=== PATIENT | male | born 1965 | race Caucasian/White ===

== ENCOUNTER 2021-02-05 20:39 | Outpatient (REF) | payer BC, SELFPAY ==
[2021-02-07 12:03] LABS: COVID-19 RT-PCR UVMMC Result Negative (Negative)
== END 2021-02-05 20:40 | disposition home or self-care (01) ==
LOC: LBN 20:39
PROVIDERS: PCP Emergency Medicine; Visit Provider Emergency Medicine
DX: Z20.822 Contact with and (suspected) exposure to COVID-19 (principal); J45.909 Unspecified asthma, uncomplicated
CPT/HCPCS: U0003

== ENCOUNTER 2021-02-06 04:22 | Outpatient (CLI) | payer BC, SELFPAY ==
--- NOTE | 2021-02-06 08:15 | DI.RAD_ITS ---
Exam(s) XR CHEST 2V PA LATERAL EXAM: XR CHEST 2V PA LATERAL CLINICAL HISTORY: sob,r06.02. TECHNIQUE: 2D digital imaging was performed. COMPARISON: Chest x-ray 05/19/2016 FINDINGS: Chest x-ray performed 02/06/2021 is submitted to sc for interpretation on today's date, 02/11/2021. Compared to 2017 Heart size is normal. The mediastinum is not widened. Hyperinflation. There is infiltrate in the left lower lobe. Also atelectasis-infiltrate in the ling ular segment of the left lung. No obvious pleural effusion. IMPRESSION: Left lung base infiltrate as described above. No pleural effusions. DATA REPOSITORY: RADIATION DOSE DELIVERED:
== END 2021-02-06 04:42 ==
PROVIDERS: PCP Emergency Medicine; Visit Provider Emergency Medicine
DX: R06.02 Shortness of breath (principal); R91.8 Other nonspecific abnormal finding of lung field
CPT/HCPCS: 71046

== ENCOUNTER 2021-02-08 11:34 | Emergency (ER) | payer BC, SELFPAY ==
[2021-02-08 11:45] VITALS: BP 143/90; PULSE 80; TEMP 36.7; O2SAT 94
--- NOTE | 2021-02-08 11:45 | DI.RAD_ITS ---
Exam(s) XR PORTABLE CHEST AP EXAM: XR PORTABLE CHEST AP CLINICAL HISTORY: cough. TECHNIQUE: 2D digital imaging was performed. COMPARISON: CR CHEST 2 VIEWS PA,LAT from 05/19/2016 CR CHEST 2 VIEWS PA,LAT from 05/19/2016 CR XR CHEST 2V PA LATERAL from 02/06/2021 FINDINGS: Heart size is upper normal. The mediastinum is not widened. Right lung is clear. There is mild infiltrate in the left lower lobe posterior basal segment. Also within the inferior lingular segment. No pleural effusions. IMPRESSION: There is infiltrate in the left lung base. No pleural effusions. DATA REPOSITORY: RADIATION DOSE DELIVERED: All CT scans at this facility use at least one of these dose optimization techniques: automated exposure control; mA and/or kV adjustment per patient size (includes targeted e xams where dose is matched to clinical indication); or iterative reconstruction.
--- NOTE | 2021-02-08 11:48 | ED.GENADUL_ITS ---
Discharge Plan Disposition Patient Disposition: HOME Condition: Stable Discharge Details Clinical Impression: Pneumonia Primary Care Provider: Michael Jackson ED Provider: Mellissa Pardo Home Meds and New Rx's Prescriptions: New doxycycline hyclate 100 mg tablet 100 mg PO BID Qty: 14 RF: 0 albuterol sulfate 1.25 mg/3 mL solution for nebulization 1.25 mg inhalation QID PRN (Reason: shortness of breath or wheezing) Qty: 15 RF: 0 benzonatate [Tessalon Perles] 100 mg capsule 100 mg PO TID PRN (Reason: cough) Qty: 10 RF: 0 Continued triamcinolone acetonide 0.1 % ointment 1 applic topical DAILY Qty: 80 RF: 0 prednisone 20 mg tablet 40 mg PO DAILY Qty: 10 RF: 0 budesonide-formoterol [Symbicort] 80-4.5 mcg/actuation HFA aerosol inhaler 2 puff inhalation BID Qty: 10.2 RF: 6 lansoprazole [Prevacid] 30 MG capsule,delayed release(DR/EC) 30 mg PO DAILY RF: 0 ALPHAGAN P 15 ML drops 1 drp OD BID RF: 0 latanoprost [Xalatan] 2.5 ML drops 1 drp OU DAILY RF: 0 ibuprofen 200 MG capsule 800 mg PO q 6hr prn RF: 0 PROVENTIL HFA 18 GM HFA.AER.AD 2 puff Inhalation Q4H PRN Qty: 2 RF: 6 albuterol sulfate 90 mcg/actuation HFA aerosol inhaler 2 puff IH QID PRN (Reason: shortness of breath or wheezing) Qty: 18 RF: 6 Discharge Instructions Instructions: Pneumonia (ED) Additional Instructions: Your x-ray is concerning for pneumonia. Please take the antibiotics as prescribed. You are given a dose today, next dose will be due this evening. Please encourage hydration. You may use Tylenol and/or ibuprofen as needed for discomfort. You may use the albuterol as previously prescribed to help with shortness of breath, your albuterol nebulizer has been refilled. Please follow- up with primary care the end of the week for reevaluation. If you develop fever/chills, inability to stay hydrated, chest pain, increase shortness of breath or other new/worsening symptoms please seek care urgently once again. Referrals: Michael Jackson DO [Primary Care Provider] - Discharge Data Discharge Date/Time-TO BE ENTERED AT DEPARTURE: 02/08/21 14:56 Medical Decision Making Patient is a pleasant 55-year-old male presenting today with chief complaint of cough and shortness of breath. States this began 1 week ago and is progressively been increasing. He reports he has a history of asthma and states that this drainage started with wheezing. He has been using his albuterol inhaler, states he used twice this morning. He is requesting nebulizer. He states he was seen by his primary care on Tuesday, patient had negative Covid test at that time. States that he underwent a chest x-ray, has not yet received the results. He has been started on prednisone and has been taking this as prescribed. Is not currently on any antibiotics. He denies any fevers/chills. States he has been feeling fatigued. On exam, patient appears. He does appear fatigued. Vital signs are stable, including his oxygenation. He is afebrile. He does not appear systemically ill. His lung sounds are concerning for some slight wheezes at the bases. Following results normal HEENT exam. Primarily concerned for developing pneumonia. Reviewed patient's recent chest x-ray. Has not yet been interpreted by radiologist although my review had concerned for pneumonia in the left lower lobe. Will give DuoNeb and begin on antibiotics. As the symptoms have progressed, will obtain repeat chest x-ray. Patient feeling improved after nebulizer. Lungs clear. Will refill his nebulizer medication. CXR reviewed by radiologist: FINDINGS: Lungs: Mild airspace disease within the left lung base. Pleural spaces: Unremarkable. No pleural effusion. No pneumothorax. Heart/Mediastinum: Unremarkable. No cardiomegaly. Bones/joints: Unremarkable. IMPRESSION: Mild airspace disease within the left lung base. Lungs are otherwise well aerated. This was compared to previous by myself. I am still concerned for consolidation consistent with pneumonia in LLL. Will treat with abx, will give first dose of Doxy here. Refilled nebulizer. Encouraged hydration. He will continue with his steroids for his asthma exacerbation as previously prescribed by PCP. Return precautions discussed. All of his quesitons and concerns were addressed, he is in agreement with this plan. Advised f/u in one week for reevaluation. Patient requesting cough suppressant, will prescribe tessalon perles. HPI General Mode of arrival: ambulatory . Date/Time Provider Initiated Documentation: 02/08/21 11:48 . Limitations to Documentation: no limitations . Information obtained by: patient and RN notes reviewed . History of Present Illness 55 year old M presents to the emergency department with the chief complaint of cough, SOB, described as moderate, Quality is described as other (denies any pain), and is localized to the chest. Patient reports no radiation. Patient started experiencing this day(s) and it has been constant. Medication improves symptom(s), (albuterol) No exacerbating factors reported . Patient notes cough and shortness of breath; denies chest pain, fever/chills, loss of appetite, nausea/vomiting, rash and weakness. Patient did receive the following treatments prior to arrival, none Related Data Home Medications Medication Instructions Recorded Confirmed Alphagan P 1 drp OD BID drp 11/09/12 02/08/21 lansoprazole [Prevacid] 30 mg PO DAILY tab-cap 11/09/12 02/08/21 latanoprost [Xalatan] 1 drp OU DAILY drp 11/09/12 02/08/21 ibuprofen 800 mg PO q 6hr prn tab-cap 03/07/13 02/08/21 triamcinolone acetonide 0.1 % 1 applic TOPICAL DAILY #80 g 03/04/20 02/08/21 topical ointment albuterol sulfate 90 mcg/actuation 2 puff IH QID PRN #18 gm 07/29/20 02/08/21 aerosol inhaler budesonide-formoterol HFA 80 2 puff INHALATION BID #10.2 g 02/05/21 02/08/21 mcg-4.5 mcg/actuation aerosol inhaler prednisone 20 mg tablet 40 mg PO DAILY #10 tab 02/05/21 02/08/21 albuterol sulfate 1.25 mg INHALATION QID PRN #15 ml 02/08/21 benzonatate [Tessalon Perles] 100 mg PO TID PRN #10 cap 02/08/21 doxycycline hyclate 100 mg PO BID #14 tab 02/08/21 Previous Rx's Medication Instructions Recorded triamcinolone acetonide 0.1 % 1 applic TOPICAL DAILY #80 g 03/04/20 topical ointment albuterol sulfate 90 mcg/actuation 2 puff IH QID PRN #18 gm 07/29/20 aerosol inhaler budesonide-formoterol HFA 80 2 puff INHALATION BID #10.2 g 02/05/21 mcg-4.5 mcg/actuation aerosol inhaler prednisone 20 mg tablet 40 mg PO DAILY #10 tab 02/05/21 albuterol sulfate 1.25 mg INHALATION QID PRN #15 ml 02/08/21 benzonatate [Tessalon Perles] 100 mg PO TID PRN #10 cap 02/08/21 doxycycline hyclate 100 mg PO BID #14 tab 02/08/21 Allergies Allergy/AdvReac Type Severity Reaction Status Date / Time No Known Drug Allergies Allergy Verified 02/08/21 11:51 General Stated Complaint: RespSymp DANILO: 3 Review of Systems Constitutional Constitutional: Reports as per HPI, Reports fatigue, Denies fever(s) and Denies headache(s) ENT Ears, Nose, Mouth, and Throat: Reports as per HPI and Denies headache(s) Cardiovascular Cardiovascular: Reports as per HPI, Denies chest pain, Denies chest pain at rest, Reports dyspnea and Reports dyspnea on exertion Respiratory Respiratory: Reports as per HPI, Reports chest congestion, Denies hemoptysis, Reports excessive phlegm production, Denies pain on inspiration, Denies pain w ith cough, Reports dyspnea, Reports dyspnea on exertion and Reports wheezing Gastrointestinal Gastrointestinal: Reports as per HPI, Denies abdominal pain, Denies change in bowel habits, Denies nausea and Denies vomiting Integumentary/Breasts Skin/Breast: Reports as per HPI and Denies rash Neurologic Neurologic: Reports as per HPI and Denies headache(s) Endocrine Endocrine: Reports fatigue Allergic/Immunologic Allergic/Immunologic: Reports wheezing [facility] Medical History (Updated 02/08/21 @ 14:32 by EMILIANA Reed) SOB (shortness of breath) Surgical History Appendectomy (~2002) Family History Mother Diabetes Heart disease Hyperlipidemia Neoplasm Stroke Father Heart disease Hyperlipidemia Stroke Sister Hyperlipidemia Social History Smoking/Tobacco Use Status: Never Smoking risk assessment performed?: Yes Alcohol Intake: current Alcohol Intake frequency: a few times a month Drug use: Never Substance use type: does not use Do you feel safe at home: Yes Do you feel safe in your relationship?: Yes Exam Const General: cooperative, healthy appearing, comfortable, no acute distress, well developed and well groomed Nutritional Appearance: average body habitus and well nourished Orientation: alert and awake [facility] Head: normal to inspection, normocephalic and atraumatic Ears: hearing grossly normal bilaterally, external ears normal and TM's normal bilaterally General nose exam: external nose normal and nares normal Face and sinus: normal facial exam, sinuses nontender and face symmetric Mouth: oral mucosae normal, lip normal, tongue normal, oropharynx normal and moist mucous membranes Teeth and gingiva: dentition normal Throat: posterior oropharynx abnormal (slightly erythematous), tonsils normal and uvula midline Eyes General: appearance normal, both eyes and all related structures Neck Neck: normal visual inspection, full ROM and no lymphadenopathy Resp Effort & Inspection: normal respiratory effort, able to speak in complete sentences and no respiratory distress Auscultation: clear to auscultation bilaterally, no rales, no rhonchi and no wheezes Cardio Rate: regular rate Rhythm: regular rhythm Heart Sounds: S1 normal and S2 normal Skin General skin exam: no rashes or lesions noted Neuro General: patient alert and patient awake Cognition: normal cognition Speech: speech normal Gait: normal gait Extrem General: no pedal edema, no calf tenderness and normal gait Psych Appearance: grossly normal and well kempt Mental Status: mental status grossly normal Speech and Movement: speech and movement normal Course Vital Signs Vital signs: Vital Signs Temperature 36.7 C 02/08/21 11:45 Pulse 80 02/08/21 11:45 Blood Pressure 143/90 H 02/08/21 11:45 Pulse Oximetry 94 02/08/21 11:45 Temperature 36.7 C 02/08/21 11:45 Temperature Source Oral 02/08/21 11:45 Pulse 80 02/08/21 11:45 Blood Pressure 143/90 H 02/08/21 11:45 Blood Pressure Position Sitting 02/08/21 11:45 Pulse Oximetry 94 02/08/21 11:45 Oxygen Delivery Method Room Air 02/08/21 11:45 Oxygen Flow Rate 0 02/08/21 11:45 Pain Level 0 02/08/21 11:45
[2021-02-08] MEDS: Doxycycline Hyclate 100 MG CAP PO (12:54)
[2021-02-08] MEDS: Albuterol/Ipratropium 3 ML UPD VIAL UPD (12:54)
--- NOTE | 2021-02-08 15:09 | DI.VRAD_ITS ---
PROCEDURE INFORMATION: Exam: XR Chest Exam date and time: 02/08/2021 11:59 AM Age: 55 years old Clinical indication: Cough TECHNIQUE: Imaging protocol: XR of the chest. Views: 1 view. COMPARISON: CR XR CHEST 2V PA LATERAL 02/06/2021 10:18 AM FINDINGS: Lungs: Mild airspace disease within the left lung base. Pleural spaces: Unremarkable. No pleural effusion. No pneumothorax. Heart/Mediastinum: Unremarkable. No cardiomegaly. Bones/joints: Unremarkable. IMPRESSION: Mild airspace disease within the left lung base. Lungs are otherwise well aerated. Dictated and Authenticated by: Christo Brennan MD. Ordering:NITIN Malloy MD
== END 2021-02-08 14:56 | disposition home or self-care (01) ==
PROVIDERS: Emergency Provider Physician Assistant; PCP Emergency Medicine
DX: J18.9 Pneumonia, unspecified organism (principal)
CPT/HCPCS: 94640; 99283; 71045; J7620

== ENCOUNTER 2021-02-12 10:04 | Outpatient (CLI) | payer BC, SELFPAY ==
[2021-02-12 10:39] LABS: Abs Immature Grans 0.03 10^3/uL (0.0-0.06); Absolute Eosinophil Count 0.27 10^3/uL (0.0-0.7); Absolute Monocyte Count 0.59 10^3/uL (0.1-0.8); Absolute Neutrophil Count 5.44 10^3/uL (1.2-6.7); Basophils % 1.3; Eosinophils % 3.4; HCT 46.5 % (40.0-50.0); HGB 15.1 g/dL (13.5-17.5); Immature Grans % 0.4; Lymphocytes % 17.9; MCH 27.3 pg (27.0-33.0); MCHC 32.5 % (32.0-36.0); MCV 84.1 fL (80-95); MPV 10.1 fL (8.0-11.0); Monocytes % 7.5; Neutrophils % 69.5; Nucleated RBC 0 %; Platelet Count 263 10^3/uL (130-400); RBC 5.53 10^6/uL (4.36-5.78); RDW 14.1 % (11.8-14.1); RDW-SD 43.4 fL; WBC 7.83 10^3/uL (4.4-10.8)
[2021-02-12 11:15] LABS: D-Dimer 383 ng/mlFEU (<500)
[2021-02-12 12:31] LABS: ALT 74 U/L (16-63); AST 21 U/L (15-37); Albumin 3.4 g/dL (3.4-5.0); Alkaline Phosphatase 78 U/L (46-116); Anion Gap 4.3 mmol/L (3-11); BUN 16 mg/dL (7-18); Bilirubin, Total 0.6 mg/dL (0.2-1.0); C-Reactive Protein 0.18 mg/dL (0.0-0.3); CO2 33.7 mmol/L (21.0-32.0); CREATININE 0.9 mg/dL (0.70-1.30); Calcium 8.9 mg/dL (8.5-10.1); Chloride 105 mmol/L (98-107); Glucose 81 mg/dL (74-106); Potassium 4.5 mmol/L (3.5-5.1); Sodium 143 mmol/L (136-145); Total Protein 6.5 g/dL (6.4-8.2)
[2021-02-14 00:16] LABS: Legionella Ag Detection Urine Negative (Negative)
== END 2021-02-12 10:05 | disposition home or self-care (01) ==
LOC: LBO 10:05
PROVIDERS: PCP Emergency Medicine; Visit Provider Emergency Medicine
DX: R06.02 Shortness of breath; J18.9 Pneumonia, unspecified organism
CPT/HCPCS: 36415; 80053; 87449; 85025; 85379; 86140

== ENCOUNTER 2021-06-22 02:22 | Outpatient (CLI) | payer BC, SELFPAY ==
--- NOTE | 2021-06-22 07:45 | DI.RAD_ITS ---
Exam(s) XR CHEST 2V PA LATERAL EXAM: XR CHEST 2V PA LATERAL CLINICAL HISTORY: SOB,R06.02. TECHNIQUE: 2D digital imaging was performed. COMPARISON: CR XR CHEST 2V PA LATERAL from 02/06/2021 and 02/06/2021 FINDINGS: Heart size is normal. The mediastinum is not widened. Right lung remains clear. There is platelike atelectasis in the lingular segment. On the lateral vi ew there appears to be some mild infiltrate in the left lower lobe. There are no pleural effusions. No pulmonary edema. No pneumothorax. IMPRESSION: Mild left lower lobe infiltrate, best seen on the lateral view. There is also platelike atelectasis in the inferior lingular segment seen on both the frontal lateral views. No significant findings in the opposite-right lung. No pleural effusions. DATA REPOSITORY: RADIATION DOSE DELIVERED:
== END 2021-06-22 02:42 ==
PROVIDERS: PCP Family Medicine; Visit Provider Emergency Medicine
DX: R06.02 Shortness of breath (principal); R91.8 Other nonspecific abnormal finding of lung field; J98.11 Atelectasis
CPT/HCPCS: 71046

== ENCOUNTER 2021-06-22 04:07 | Outpatient (CLI) | payer BC, SELFPAY ==
[2021-06-22 09:11] LABS: Anion Gap 8.5 mmol/L (3-11); BUN 16 mg/dL (7-18); CO2 28.5 mmol/L (21.0-32.0); CREATININE 0.9 mg/dL (0.70-1.30); Calcium 8.8 mg/dL (8.5-10.1); Calculated LDL 130 mg/dL (<100); Chloride 105 mmol/L (98-107); Cholesterol 195 mg/dL (<200); Glucose 93 mg/dL (74-106); HDL Cholesterol 46 mg/dL (40-60); Potassium 4.4 mmol/L (3.5-5.1); Sodium 142 mmol/L (136-145); Triglyceride 98 mg/dL (<150)
[2021-06-22 18:59] LABS: PSA, Screening 1.8 ng/mL (0.0-3.5)
[2021-06-23 10:45] LABS: Hepatitis C Ab w Rflx HCV PCR Negative (Negative)
== END 2021-06-22 04:08 | disposition home or self-care (01) ==
LOC: LBO 04:07
PROVIDERS: PCP Family Medicine; Visit Provider Family Medicine
DX: Z13.6 Encounter for screening for cardiovascular disorders (principal); Z11.59 Encounter for screening for other viral diseases; Z12.5 Encounter for screening for malignant neoplasm of prostate
CPT/HCPCS: 36415; 80048; 80061; 84153; 86803

== ENCOUNTER 2021-07-08 00:39 | Outpatient (CLI) | payer BC, SELFPAY ==
--- NOTE | 2021-07-08 07:30 | DI.CT_ITS ---
Exam(s) CT CHEST W EXAM: CT CHEST W CLINICAL HISTORY: persistent left lower lobe infiltrate, non smoker,RECENT SOB,PORTILLO DUST EX TECHNIQUE: Imaging Protocol: Axial computed tomography images with coronal and sagittal reformatted images were created and reviewed CONTRAST MATERIAL: Intravenous: Omnipaque 350 Contrast volume:70 ml. COMPARISON: CR,XR XR PORTABLE CHEST AP from 02/08/2021 CR XR CHEST 2V PA LATERAL from 06/22/2021 FINDINGS: Tracheobronchial tree: No bronchiectasis or mucous plugging. Mediastinum and [place]: No dominant adenopathy or fluid collection. Pulmonary parenchyma: Linear scarring right and left lower lobes. No residual pneumonia. No consoli dation or dominant measurable mass. No emphysematous or fibrotic changes. No calcifications. Pleura: No effusion or pneumothorax. No pleural thickening. Heart: The heart is not dilated. No coronary artery calcifications are seen. Aorta: Thoracic aorta non-dilated. Upper abdomen: Marked fatty infiltration of the liver. Lymph nodes: Within normal limits. Bones: Normal. Soft tissues: Unremarkable. IMPRESSION: Mild linear atelectasis and/or scarring bilateral posterior lung bases. No residual pneumonia. No e vidence of mass. RADIATION DOSE DELIVERED: 644.38mGy.cm Total DLP DATA REPOSITORY: All CT scans at this facility are submitted to the National Radiology Data Registry (NRDR) Dose Index Registry (DIR) with the [employer] (A[employer]). RADIATION OPTIMIZATION: All CT scans at this facility use at least one of these dose optimization te chniques: automated exposure control; mA and/or kV adjustment per patient size (includes targeted exa ms where dose is matched to clinical indication); or iterative reconstruction.
[2021-07-08] MEDS: Omnipaque 350 MG/ML 100 ML BTL IJ (13:51)
[2021-07-08] MEDS: Normal Saline Flush 10 ML SYR IVP (13:52)
== END 2021-07-08 00:59 ==
PROVIDERS: PCP Family Medicine; Visit Provider Family Medicine
DX: J45.909 Unspecified asthma, uncomplicated (principal); R06.02 Shortness of breath; R93.89 Abnormal findings on diagnostic imaging of other specified body structures; J98.11 Atelectasis
CPT/HCPCS: 71260; J3490

== ENCOUNTER 2022-04-26 07:05 | Day surgery (SDC) | payer BC, SELFPAY ==
--- NOTE | 2022-04-26 07:07 | W.ANESPRE ---
General Info Date of Service Date Performed: 04/26/22 Height: 5 ft 10.87 in Weight: 112.9 kg Body Mass Index (BMI): 34.8 Surgical Procedure: Operation Date: 04/26/22 08:35 Proposed Procedure Side Surgeon p Cliff Montilla MD Meds Allergies and Home Medications Allergies Allergy/AdvReac Type Severity Reaction Status Date / Time No Known Drug Allergies Allergy Verified 04/15/22 07:52 Home Medication Medication Instructions Recorded lansoprazole 30 mg capsule,delayed 30 mg PO DAILY 11/09/12 release (Prevacid) latanoprost 0.005 % eye drops 1 drp OU DAILY 11/09/12 (Xalatan) budesonide-formoterol HFA 160 2 puff inhalation BID #10.2 grams 05/21/21 mcg-4.5 mcg/actuation aerosol inhaler (Symbicort) dorzolamide 2 %-timolol 0.5 % (PF) 1 drp ophthalmic (eye) BID 05/21/21 eye drops albuterol sulfate 90 mcg/actuation 2 puff inhalation QID PRN 06/30/21 aerosol inhaler shortness of breath or wheezing #18 grams bisacodyl 5 mg tablet,delayed 5 mg PO ONCE #4 tabs 04/15/22 release (Dulcolax (bisacodyl)) polyethylene glycol 3350 17 17 g PO ONCE #238 grams 04/15/22 gram/dose oral powder Current Visit Medications: Current Medications Generic Name Dose Route Start Last Admin Trade Name Freq PRN Reason Stop Dose Admin Ringer's Solution 1,000 mls @ 80 mls/hr 04/26/22 06:00 IV 04/26/22 23:59 INFUSION JEANNETTE IV Miscellaneous Supplies 1 each 04/26/22 06:00 Iv Access IV 04/26/22 23:59 DIRECTED JEANNETTE Sodium Chloride 0 ml 04/26/22 06:00 Normal Saline Flush 10 Ml Syr IV 04/26/22 23:59 PRN PRN Sodium Chloride 0 ml 04/26/22 06:00 Normal Saline 10 Ml Vial IJ 04/26/22 23:59 DIRECTED PRN Sterile Water 0 ml 04/26/22 06:00 Water,Injection,Sterile 10 Ml Vial IJ 04/26/22 23:59 DIRECTED PRN PFSH Active Problems Active Problems: Problem Status Onset Code Screening for colon cancer Z12.11 SOB (shortness of breath) R06.02 Pneumonia J18.9 Kidney stone 04/14/06 N20.0 Herpes zoster B02.9 Pyloric ulcer associated with Helicobacter pylori 04/14/98 K25.9, B96.81 Glaucoma H40.9 Gastroesophageal reflux disease K21.9 Eczema 05/04/16 L30.9 Asthma J45.909 Surgical History Surgical History Appendectomy (~2002) Tobacco Smoking/Tobacco Use Status: Never Passive smoking exposure: No Second hand exposure: No Alcohol Alcohol Intake: current Alcohol intake frequency: a few times a month Substance Use Substance use: Never Substance use type: does not use Vital Signs and Lab Results Lab Results Blood Type / Crossmatch: No Data to Display Complete Blood Count: No Data to Display Complete Metabolic Panel: No Data to Display Liver Function Panel: No Data to Display Coagulation Panel: No Data to Display Cardiac Panel: No Data to Display Arterial Blood Gas: No Data to Display Venous Blood Gas: No Data to Display Pancreas Panel: No Data to Display Thyroid Panel: No Data to Display Infectious Disease: No Data to Display Blood Cultures: No Data to Display Toxicology Panel: No Data to Display Anesthesia Assessment and Plan Anesthesia History Personal History: No History of Anesthesia Complications Family History: Family History Unknown Exercise Tolerance Exercise Tolerance: Metabolic Equivalents>4 Pertinent Negatives Pertinent Negatives: No Symptoms of GERD, No Major Cardiovascular Symptoms or Complaints and No History of CVA/TIA Cardiac & Pulmonary Exam Cardiac Exam: Normal S1/S2 Heart Sounds Pulmonary Exam: Clear Bilateral Breath Sounds Implantable Cardiac Device Does patient have a Pacemaker or an ICD?: No Airway Exam Known Difficult Airway: No Mallampati Class: 2 Mouth Opening: Normal (> 3cm) Thyromental Distance: Greater than 3 cm Neck Range of Motion: Full ROM Neck Circumference: Normal Teeth Condition: Normal Dentition and Loose or Chipped (Multiple upper right) ASA Classification ASA Score: ASA 3 Emergency Case?: No NPO Status NPO Status: NPO Clears >2 hours, Solids >8 hours Anesthesia Plan Resuscitation Status: Full Code Anesthesia Technique: General Anesthesia Airway Planned: Natural Airway Monitors Used: Standard Monitors Preoperative Comments:: Appendectomy in 2002. Reports slow wake-up
[2022-04-26 07:29] VITALS: BP 115/79; PULSE 85; RESP 20; TEMP 36.9; O2SAT 96
[2022-04-26] MEDS: Lactated Ringers 1,000 ML 80 ML IV (07:55)
[2022-04-26 08:23] VITALS: BMI 34.8
--- NOTE | 2022-04-26 08:32 | BOWEL_PTH ---
PATIENT: Luís Prater LOC: [facility] U#:[id number] AGE/SX: 56/M ROOM: RE04/26/[address]: Randal Montilla : 1965 BED: DIS: 04/26/2022 SPEC #: [id number] RECD: 04/26/22 12:23 STATUS: KATY RE #: [id number] BOYD: 04/26/22 08:[address]: Randal Montilla DEPT: Surgical Specimen RECD BY: Anisa Martin ENTERED: 04/26/22 12:24 SP TYPE: Bowel OTHR DR: Christophe Robertson DNP Tissues: 1 - BIOPSY BOWEL 2 - BIOPSY BOWEL Procedures: GROSS AND MICRO LEVEL 4 Comments: [id number]
--- NOTE | 2022-04-26 08:49 | W.PM.ENDDOP ---
Date of service: 04/26/22 Time of Service: 08:49 Endoscopy Report PROCEDURE DESCRIPTION: Procedures performed: 1. Colonoscopy with snare polypectomy x2 2. Endoscopic clip placement Preoperative diagnosis: Screening colonoscopy Postoperative diagnosis: Colon polyps Surgeon: Ciara Montilla Anesthesia: Javier Indication for procedure: Patient is a 56-year-old man who has never had a colonoscopy. He has a strong family history of colon polyps (Father and sister). He has no symptoms. Findings: A 3 to 5 mm sessile polyp was removed from the sigmoid colon with hot snare technique. A 12-15mm pedunculated polyp was removed from the distal sigmoid(~25cm) with hot snare technique. Due to the size of the stalk, I left a clip approximating the mucosal edges after resection. Surveillance/follow-up recommendations: 6 months - 3 years pending path results. If villous or sessile serrated or dysplastic architecture is found in the distal colon polyp, a flexible sigmoidoscopy should be done to ensure complete resection of this polyp in the next 6 months or so. If yes adenomatous or any other benign histology, then he should repeat in 3 years. Complications: None Blood loss: Minimal Procedure in detail: Written consent was obtained from the patient who was in agreement with the risks, benefits and indications of the procedure. He was taken to the endoscopy suite and laid in left lateral decubitus position. Anesthesia was administered which he tolerated well. A timeout was performed and when we are all in agreement we began the procedure. Digital rectal exam and visual examination was performed and within normal limits. A well?lubricated colonoscope was advanced without difficulty all the way to the cecum identified by the ileocecal valve, and triangular folds and appendiceal orifice. It was then slowly withdrawn. Retroflexion was performed in the rectum. The findings/interventions are noted above. The scope was then removed and the patient tolerated the procedure well and was then taken back to the PACU in hemodynamically stable condition.
[2022-04-26 08:52] VITALS: BP 97/63; PULSE 68; RESP 16; TEMP 36.1; O2SAT 95
[2022-04-26 09:20] VITALS: BP 113/81; PULSE 70; RESP 18; TEMP 36.2; O2SAT 96
--- NOTE | 2022-04-26 09:37 | W.ANESPOSTOP ---
Postoperative Evaluation Date, Time and Location Date Performed: 04/26/22 Time Performed: 09:18 Patient Location: Day Surgery Unit Vital Signs Most Recent Imported Vital Signs: Most Recent Vital Signs Temp Pulse Resp BP Pulse Ox 36.2 C L 70 18 113/81 96 04/26/22 09:20 04/26/22 09:20 04/26/22 09:20 04/26/22 09:20 04/26/22 09:20 Pain Score Most Recent Pain Score: Most Recent Pain Score Pain Level 0 04/26/22 09:20 Assessment Mental Status: Awake (Alert & Oriented to Patient Baseline) Airway and Respiratory Function: Patent airway with normal (patient baseline) respiratory exam Cardiovascular Function: Hemodynamically Stable Hydration Status: Adequately Hydrated Nausea & Vomiting: No Nausea or Vomiting Pain: Pt. Denies Any Pain Peripheral Nerve Block: Patient did not receive a nerve block
== END 2022-04-26 09:32 | disposition home or self-care (01) ==
PROVIDERS: PCP Nurse Practitioner Family; Visit Provider Student in an Organized Health Care Education/Training Program
PROC: 0DJD8ZZ Inspection of Lower Intestinal Tract, Via Natural or Artificial Opening Endoscopic (ICD-10-PCS; CPT 45378; principal; 2022-04-26 08:30)
DX: Z12.11 Encounter for screening for malignant neoplasm of colon (principal); K63.5 Polyp of colon
CPT/HCPCS: 45385; 88305

== ENCOUNTER 2022-06-24 02:07 | Outpatient (CLI) | payer BC, SELFPAY ==
[2022-06-24] MEDS: Albuterol HFA 18 GM 200 PUFF INH IH (12:13)
[2022-06-24] MEDS: Inhaler, Assist Device 1 EACH MC (12:13)
--- NOTE | 2022-06-25 08:24 | W.PFT ---
Date of service: 06/24/22 Time of Service: 10:08 Pulmonary Function Test Result Requesting Provider Christophe Moncada Indications: Asthma, dyspnea Interpretation Spirometry: There is no airflow limitation. There is a significant bronchodilator response. The FVC is low. Lung Volumes: Normal lung volumes. Diffusion Capacity: Normal diffusion. Airway Pressure: Normal airways resistance Impression No airflow obstruction with a bronchodilator response. Normal pulmonary function - the low FVC is pseudo restriction from an elevated BMI. Clinical Correlation therefore is recommended.
== END 2022-06-24 02:08 | disposition home or self-care (01) ==
LOC: RT 02:07
PROVIDERS: PCP Nurse Practitioner Family; Visit Provider Nurse Practitioner Family
DX: R06.09 Other forms of dyspnea (principal); J45.909 Unspecified asthma, uncomplicated
CPT/HCPCS: 94060; 94726; 94729

== ENCOUNTER 2022-07-29 01:28 | Outpatient (CLI) | payer BC, SELFPAY ==
--- NOTE | 2022-07-29 07:30 | DI.RAD_ITS ---
Exam(s) XR CHEST 2V PA LATERAL EXAM: XR CHEST 2V PA LATERAL CLINICAL HISTORY: SOB,R06.02 TECHNIQUE: 2D digital imaging was performed. COMPARISON: CR XR CHEST 2V PA LATERAL from 06/22/[address] CHEST W from 07/08/2021 FINDINGS: HEART: Normal size. Aorta: Not dilated. PULMONARY VASCULATURE: Normal. LUNGS: Minimal linear scarring at the lung bases continued improvement compared to prior. No new ab normalities. PLEURAL SPACE: No pleural effusion or pneumothorax. BONE:Unremarkable for age. IMPRESSION: No acute abnormality. DATA REPOSITORY: RADIATION DOSE DELIVERED:
--- NOTE | 2022-07-29 14:00 | DI.US_ITS ---
APPROVED REPORT EXAM: Comprehensive 2D, Doppler, and color-flow Echocardiogram Patient Location: Out-Patient Research And Development Scientist: Anay Zacarias RDCS (AE) Indications: Worsening SOB, Decreased exercise tolerance Other Information Study Quality: Adequate Conclusion Normal left ventricular wall thickness and chamber size. Estimated ejection fraction is 60%. Wall m otion is normal Normal right ventricular size and systolic function Both atria are normal in size There is no structural or hemodynamically significant valvular disease Estimated right ventricular systolic pressure is 22 mmHg Wall motion Left Ventricle The left ventricle is normal size. The left ventricular systolic function is normal. The left ventric ular ejection fraction is within the normal range. There is normal left ventricular wall thickness. T here is normal LV segmental wall motion. There is no ventricular septal defect visualized. LVEF is 60 %. Right Ventricle The right ventricle is normal size. The right ventricular systolic function is normal. The RVSP is 22 .4_ mmHg. Atria The left atrium size is normal. The right atrium size is normal. The interatrial septum is intact wit h no evidence for an atrial septal defect. Aortic Valve The aortic valve is normal in structure. Aortic valve is trileaflet. There is no aortic valvular sten osis. No aortic regurgitation is present. Mitral Valve The mitral valve is normal in structure. No evidence of mitral valve stenosis. Trace mitral regurgita tion. Tricuspid Valve The tricuspid valve is normal in structure. There is no tricuspid valve stenosis. Trace tricuspid re gurgitation. Pulmonic Valve The pulmonary valve is normal in structure. There is no pulmonic valvular stenosis. There is no pulmo alberto valvular regurgitation. Great Vessels The aortic root is normal in size. The ascending aorta is normal in size. Aortic arch is normal in ca liber. IVC is normal in size and collapses >50% with inspiration. Pericardium There is no pericardial effusion. 2D Dimensions IVSD d PLAX 1.03 cm M: 0.6-1.2 LV Vol A2C d MOD 90.1 mL LVPW d PLAX 1.08 cm M: 0.6 - 1.2 LV Vol A4C d MOD 118.4 mL LVID d PLAX 4.80 cm M: 4.2 - 5.8 LA vol/ BSA A2C s A-L 22.2 mL/m2 LVDs 3.35 cm M: 2.5 - 4.0 LA vol/ BSA A4C s A-L 17.6 mL/m2 Ao Root d 2.61 cm M: 3.1 - 3.7 LA Vol/ BSA Biplane s A-L 20.2 mL/m2 RA Area A4C 14.22 cm2 LA Area A4C s MOD 16.09 cm2 RA Vol/ BSA A4C s A-L 16.7 mL/m2 LA Area A2C s MOD 17.67 cm2 Ao Asc Diam d 2.95 cm M: 2.6 - 3.4 LV EF A4C MOD 60.0 % LV EF Teichholz 56.4 % LV EF A2C MOD 59.5 % LVEF (Gandhi's) 57.68 % M: 52 - 72 LV EF Biplane MOD 57.7 % LV Volume 75.21 mL M: 62 - 150 SV 60.47 mL LV Volume Index 32.70 mL/m2 M: 34 - 74 SV Index 26.30 mL/m2 LV Vol Biplane MOD 104.8 mL FS 29.45 % M-Mode TAPSE 2.33 cm (M/F) >1.7 LV Diastology MV E' medial 0.070 (>0.07 m/s) E/A Ratio 1.0 LV E/e MED 9.55 (<14) MV E Vmax 0.67 (0.4-1.3 m/s) MV E' lateral 0.101 (>0.1 m/s) MV A Vmax 0.70 (0.4-1.3 m/s) LV E/e LAT 6.55 (<14) MV E/A Ratio 0.90 MV E/E' medial 9.59 MV E/E' lateral 6.59 Aortic Valve LVOT Area 2.86 cm2 AoV Area Vmax 2.61 cm2 LVOT Vmax 1.39 m/s AoV Area/ BSA (Vmax) 1.14 cm2/m2 LVOT Mean Michael. 0.78 m/s BRIGITTE Mean Michael. 2.05 cm2 LVOT Peak Grad 7.7 mmHg BRIGITTE Mean Michael. Index 0.89 cm2/m2 LVOT Mean Grad 3.1 mmHg LVOT VTI 0.269 m LVOT Diam s 1.90 cm AoV Vmax 1.52 m/s Velocity Ratio 0.91 AoV Mean Michael. 1.09 m/s AoV Peak Grad 9.3 mmHg LVOT SV 77.07 mL AoV Mean Grad 5.3 mmHg AoV VTI 0.289 m AoV Area VTI 2.67 cm2 AoV Area/ BSA (VTI) 1.16 cm/m2 Mitral Valve MV DT 210 (160-240 msec) MV PHT 61 msec MV Area PHT 3.61 cm2 MV VTI 0.279 m MV Area VTI 2.76 (4.0-6.0 cm2) Pulmonary Valve PV Vmax 1.19 (0.5-1.5 m/s) RVOT Peak Gr. 1.75 mmHg PV Peak Grad 5.7 mmHg RVOT Mean Gr. 0.90 mmHg PV Mean Grad 3.0 mmHg RVOT VTI 0.132 m PV VTI 0.210 m RVOT Vmax 0.66 m/s Tricuspid Valve TR Peak Grad 19.3 mmHg TR Vmax 2.20 m/s RA Pressure 3.00 mmHg RVSP (TR) 22.4 mmHg
== END 2022-07-29 01:48 ==
PROVIDERS: PCP Nurse Practitioner Family; Visit Provider Nurse Practitioner Family
DX: R06.02 Shortness of breath (principal)
CPT/HCPCS: 71046; 93306

== ENCOUNTER 2023-06-27 19:16 | Outpatient (CLI) | payer BC, SELFPAY ==
[2023-06-28 18:42] LABS: PSA, Diagnostic 1.7 ng/mL (<=3.5)
== END 2023-06-27 19:17 | disposition home or self-care (01) ==
LOC: LBO 19:16
PROVIDERS: PCP Nurse Practitioner Family; Visit Provider Urology
DX: R35.0 Frequency of micturition (principal); R39.15 Urgency of urination; R39.89 Other symptoms and signs involving the genitourinary system
CPT/HCPCS: 36415; 84153

== ENCOUNTER 2023-10-12 06:14 | Day surgery (SDC) | payer BC, SELFPAY ==
--- NOTE | 2023-10-11 16:38 | HPE_ITS ---
Assessment and Plan Assessment and plan (1) Umbilical hernia: Status: Acute Assessment and plan: We reviewed the plan for laparoscopic umbilical hernia repair again today. I think Luís is a great understanding of the nature of the operation, and ant icipated recovery. We can proceed with the operation as planned. History of Present Illness History of Present Illness Chief Complaint: Umbilical hernia Narrative: Luís is 58 years old with a symptomatic umbilical hernia. It is quite possible that this is an incisional hernia from her previous appendectomy. 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 He is interested in repair. Since his last office visit, he did h ave a short bout of community-acquired pneumonia which was treated. He has been asymptomatic since completion of his antibiotics PFSH All Active Problems Lower urinary tract symptoms (LUTS) (Acute) Varicocele present on ultrasound of scrotum (Acute) Umbilical hernia (Acute) Testicular swelling (Acute) varicocele Asthma (Acute) Eczema (Acute 05/04/16) Gastroesophageal reflux disease (Acute) Glaucoma (Acute) Pyloric ulcer associated with Helicobacter pylori (Acute 04/14/98) TX'd Herpes zoster (Acute) Kidney stone (Acute 04/14/06) SOB (shortness of breath) (Acute) Screening for colon cancer (Acute) Erectile disorder (Acute) Medical History Rhinosinusitis Pneumonia Surgical History Appendectomy (~2002) Family History Mother Diabetes Heart disease Hyperlipidemia Neoplasm Stroke Father Heart disease Hyperlipidemia Stroke Sister Hyperlipidemia Social History Smoking/Tobacco Use Status: Never Second Hand Exposure: No Smoking risk assessment performed?: Yes Alcohol Intake: current Alcohol Intake frequency: holidays/special occasions only Alcohol type: hard liquor Drug use: Never Substance use type: does not use Caregiver/Support person: No Household members: spouse Housing: house Communication Needs: None Do you need help understanding health information?: Never Pets and animals: No Sexually active: Yes Do you think of yourself as: straight/heterosexual Current gender identity: male What is your relationship status?: How often do you talk on the phone with friends or family?: three or more times per week How often do you get together with friends or relatives?: three or more times per week How often do you attend sabianist or jewish services?: decline to answer Do you belong to any clubs or organized social groups?: no Panel score (0-1 are the most socially isolated patients): 2 What type of physical activity do you participate in: walking and other Details: Logging, Barn chores Duration: > 90 minutes/day Frequency: daily Cleopatra/Islam: No preference Special cleopatra needs: No Seatbelt use: always Helmet use: Yes Helmet use: always Drive intox or ride w/intox sales route driver helper: No Do you feel safe at home: Yes Do you feel safe in your relationship?: Yes Meds Allergies and Home Medications Allergies Allergy/AdvReac Type Severity Reaction Status Date / Time No Known Drug Allergies Allergy na Verified 10/12/23 06:29 Home Medications Medication Instructions Recorded Confirmed Type lansoprazole 30 mg capsule,delayed 30 mg PO DAILY 11/09/12 10/12/23 History release (Prevacid) latanoprost 0.005 % eye drops 1 drp OU DAILY 11/09/12 10/12/23 History (Xalatan) dorzolamide 2 %-timolol 0.5 % (PF) 1 drp ophthalmic (eye) BID 05/21/21 10/12/23 History eye drops sildenafil 100 mg tablet 100 mg PO DAILY PRN sexual 08/13/22 10/12/23 Rx activity #30 tabs albuterol sulfate 90 mcg/actuation 2 puff inhalation QID PRN 05/27/23 10/12/23 Rx aerosol inhaler shortness of breath or wheezing #18 grams fluticasone propionate 230 2 puff inhalation BID #12 grams 05/27/23 10/12/23 Rx mcg-salmeterol 21 mcg/actuation HFA inhaler (Advair HFA) albuterol sulfate 2.5 mg/3 mL 2.5 mg (3 mL) inhalation Q4H PRN 09/21/23 10/12/23 Rx (0.083 %) solution for nebulization shortness of breath or wheezing #180 mL Exam Const General: cooperative, healthy appearing and not in acute distress Neck Neck: normal visual inspection, no lymphadenopathy and supple Resp Effort & Inspection: normal respiratory effort Auscultation: clear to auscultation bilaterally Cardio Jugular venous pressure: no JVD Rate: regular rate Rhythm: regular rhythm Heart Sounds: S1 normal and S2 normal GI Inspection: normal to inspection Palpation: soft, no guarding, hernia (Mostly reducible umbilical) and nontender Percussion: normal to percussion Auscultation: normal bowel sounds Neuro General: patient alert, patient awake and patient oriented x3 Psych Appearance: grossly normal
--- NOTE | 2023-10-11 16:40 | W.PM.OP ---
Date of service: 10/12/23 Time of Service: 08:58 Operative Note Operative Note DATE OF PROCEDURE: 10/12/23 PRE-OP DIAGNOSIS: Umbilical hernia POST-OP DIAGNOSIS: same PROCEDURE: Laparoscopic umbilical hernia repair SURGEON: Steve Ordonez LINE CONSTRUCTION ENGINEER: Thelma Patrick Refer to Anesthesia Record ESTIMATED BLOOD LOSS: 25 COMPLICATIONS: None Patient was transported to: PACU Patient's condition: stable Implants: [address] mesh Indications: Luís is a 58-year-old male with a symptomatic umbilical hernia Findings: Omental containing umbilical hernia Procedure Description: Patient was brought to the operating room, and general endotracheal anesthesia was induced in the usual fashion. Next, the anterior abdominal wall was prepped and draped. I made a small skin incision over Dutton's point, and using a 5 mm optical viewing port, I entered the peritoneal cavity under direct vision. The peritoneum was insufflated. There was an umbilical hernia containing what appeared to be some omental fat. External compression was used to help reduce the majority of this, there did not appear to be any small bowel involvement. Next, with the assistance of the laparoscope I placed a 12 mm port in the left abdomen, followed by a 5 mm port slightly below and medial to this. The remainder of the hernia contents were then fully reduced, and the fascial edge was dissected with the LigaSure. The surrounding fat was cleared. Small needle was used to sound to the abdominal wall and map out the location of the planned mesh. The hernia defect itself was about 4 cm left to right by about 5 cm top to bottom. Therefore, I selected a [address] mesh for adequate overlap and coverage. This was delivered into the peritoneal cavity, and then I made a small skin incision over the umbilicus through which the echo deployment system was withdrawn. The delivery system was inflated, and there was excellent apposition against the anterior abdominal wall. The mesh was then tacked in place, and the echo deployment system was removed in the usual fashion. Next, using Irvin-Page to wound closure system, I removed the 12 mm port and closed the fascial defect with 0 Vicryl stitches. The 5 mm port from the left lower quadrant was removed under the vision of the laparoscope. The scope was then withdrawn, and the insufflation was evacuated. The 5 mm port was then removed, and the skin was closed with subcuticular stitches. Bandages were applied, the patient was awakened from anesthesia and transferred to the recovery unit.
[2023-10-12] VITALS (9 sets, daily range): BP systolic 124–148; BP diastolic 74–92; PULSE 62–81; RESP 16–26; TEMP 36.4–36.8; O2SAT 94–99; BMI 38.1
--- NOTE | 2023-10-12 06:53 | ANES.PREOP_ITS ---
General Info Date of Service Date Performed: 10/12/23 Height: 5 ft 11 in Weight: 124.1 kg Body Mass Index (BMI): 38.1 Surgical Procedure: Operation Date: 10/12/23 07:40 Proposed Procedure Side Surgeon p Hernia Umbilical Laparoscopic Steve Ordonez MD Actual Procedure Side Surgeon p Hernia Umbilical Laparoscopic Steve Ordonez MD Pre-Op Diagnosis Post-Op Diagnosis Umbilical hernia Meds Allergies and Home Medications Allergies Allergy/AdvReac Type Severity Reaction Status Date / Time No Known Drug Allergies Allergy na Verified 10/12/23 06:29 Home Medication Medication Instructions Recorded lansoprazole 30 mg capsule,delayed 30 mg PO DAILY 11/09/12 release (Prevacid) latanoprost 0.005 % eye drops 1 drp OU DAILY 11/09/12 (Xalatan) dorzolamide 2 %-timolol 0.5 % (PF) 1 drp ophthalmic (eye) BID 05/21/21 eye drops sildenafil 100 mg tablet 100 mg PO DAILY PRN sexual 08/13/22 activity #30 tabs albuterol sulfate 90 mcg/actuation 2 puff inhalation QID PRN 05/27/23 aerosol inhaler shortness of breath or wheezing #18 grams fluticasone propionate 230 2 puff inhalation BID #12 grams 05/27/23 mcg-salmeterol 21 mcg/actuation HFA inhaler (Advair HFA) albuterol sulfate 2.5 mg/3 mL 2.5 mg (3 mL) inhalation Q4H PRN 09/21/23 (0.083 %) solution for nebulization shortness of breath or wheezing #180 mL Current Visit Medications: Current Medications Generic Name Dose Route Start Last Admin Trade Name Freq PRN Reason Stop Dose Admin Acetaminophen 1,000 mg 10/12/23 06:00 Acetaminophen 500 Mg Tab PO 10/12/23 23:59 PREOP JEANNETTE Celecoxib 200 mg 10/12/23 06:00 Celecoxib 200 Mg Cap PO 10/12/23 23:59 PREOP JEANNETTE Gabapentin 600 mg 10/12/23 06:00 Gabapentin 300 Mg Cap PO 10/12/23 23:59 PREOP JEANNETTE Ringer's Solution 1,000 mls @ 80 mls/hr 10/12/23 06:00 IV 10/12/23 23:59 INFUSION [facility] IV Miscellaneous Supplies 1 each 10/12/23 06:00 Iv Access IV 10/12/23 23:59 DIRECTED JEANNETTE Sodium Chloride 0 ml 10/12/23 06:00 Normal Saline Flush 10 Ml Syr IV 10/12/23 23:59 PRN PRN Sodium Chloride 0 ml 10/12/23 06:00 Normal Saline 10 Ml Vial IJ 10/12/23 23:59 DIRECTED PRN Sterile Water 0 ml 10/12/23 06:00 Water,Injection,Sterile 10 Ml Vial IJ 10/12/23 23:59 DIRECTED PRN Tramadol HCl 100 mg 10/11/23 16:41 Tramadol 50 Mg Tab PO 11/10/23 16:40 Q6H PRN PRN Pain PFSH Active Problems Active Problems: Problem Status Onset Code Lower urinary tract symptoms (LUTS) R39.9 Varicocele present on ultrasound of scrotum I86.1 Umbilical hernia K42.9 Testicular swelling N50.89 Asthma J45.909 Eczema 05/04/16 L30.9 Gastroesophageal reflux disease K21.9 Glaucoma H40.9 Pyloric ulcer associated with Helicobacter pylori 04/14/98 K25.9, B96.81 Herpes zoster B02.9 Kidney stone 04/14/06 N20.0 SOB (shortness of breath) R06.02 Screening for colon cancer Z12.11 Erectile disorder N52.9 Medical History Medical History Rhinosinusitis Pneumonia Surgical History Surgical History Appendectomy (~2002) Tobacco Smoking/Tobacco Use Status: Never Passive smoking exposure: No Second hand exposure: No Alcohol Alcohol Intake: current Alcohol intake frequency: holidays/special occasions only Alcohol type: hard liquor Substance Use Substance use: Never Substance use type: does not use Vital Signs and Lab Results Vital Signs Most Recent Vital Signs in EMR: Most Recent Vital Signs Temp Pulse Resp BP Pulse Ox 36.8 C 81 18 148/82 H 94 10/12/23 06:15 10/12/23 06:15 10/12/23 06:15 10/12/23 06:15 10/12/23 06:15 Lab Results Blood Type / Crossmatch: No Data to Display Complete Blood Count: No Data to Display Complete Metabolic Panel: No Data to Display Liver Function Panel: No Data to Display Coagulation Panel: No Data to Display Cardiac Panel: No Data to Display Arterial Blood Gas: No Data to Display Venous Blood Gas: No Data to Display Pancreas Panel: No Data to Display Thyroid Panel: No Data to Display Infectious Disease: No Data to Display Blood Cultures: No Data to Display Toxicology Panel: No Data to Display Imaging and Studies Imaging and Studies Study information below may be from another EMR and interpreted by another provider. Please see original notes in EMR for more complete details. Echocardiogram Summary: Patient Name: Luís Prater Unit #: [id number] Loc: DI Ordering Provider: Christophe Valdez NARROW FABRIC CALENDERER Status: REG CLI Primary Care Provider: Christophe Valdez NARROW FABRIC CALENDERER Date of Exam: 07/29/22 Sex: M Admission Date: 07/29/22 : 1965 Age: 57 APPROVED REPORT EXAM: Comprehensive 2D, Doppler, and color-flow Echocardiogram Patient Location: Out-Patient Senior Mortgage Loan Processor: Anay Zacarias RDCS (AE) Indications: Worsening SOB, Decreased exercise tolerance Other Information Study Quality: Adequate Conclusion Normal left ventricular wall thickness and chamber size. Estimated ejection fraction is 60%. Wall motion is normal Normal right ventricular size and systolic function Both atria are normal in size There is no structural or hemodynamically significant valvular disease Estimated right ventricular systolic pressure is 22 mmHg Wall motion Left Ventricle The left ventricle is normal size. The left ventricular systolic function is normal. The left ventricular ejection fraction is within the normal range. There is normal left ventricular wall thickness. There is normal LV segmental wall motion. There is no ventricular septal defect visualized. LVEF is 60%. Right Ventricle The right ventricle is normal size. The right ventricular systolic function is normal. The RVSP is 22.4_ mmHg. Atria The left atrium size is normal. The right atrium size is normal. The interatrial septum is intact with no evidence for an atrial septal defect. Aortic Valve The aortic valve is normal in structure. Aortic valve is trileaflet. There is no aortic valvular stenosis. No aortic regurgitation is present. Mitral Valve The mitral valve is normal in structure. No evidence of mitral valve stenosis. Trace mitral regurgitation. Tricuspid Valve The tricuspid valve is normal in structure. There is no tricuspid valve stenosis. Trace tricuspid regurgitation. Pulmonic Valve The pulmonary valve is normal in structure. There is no pulmonic valvular stenosis. There is no pulmonic valvular regurgitation. Great Vessels The aortic root is normal in size. The ascending aorta is normal in size. Aortic arch is normal in caliber. IVC is normal in size and collapses >50% with inspiration. Pericardium There is no pericardial effusion. 2D Dimensions IVSD d PLAX 1.03 cm M: 0.6-1.2LV Vol A2C d MOD 90.1 mL LVPW d PLAX 1.08 cm M: 0.6 - 1.2LV Vol A4C d MOD 118.4 mL LVID d PLAX 4.80 cm M: 4.2 - 5.8LA vol/ BSA A2C s A-L22.2 mL/m2 LVDs 3.35 cm M: 2.5 - 4.0LA vol/ BSA A4C s A-L17.6 mL/m2 Ao Root d 2.61 cm M: 3.1 - 3.7LA Vol/ BSA Biplane s A-L 20.2 mL/m2 RA Area A4C14.22 cm2LA Area A4C s MOD 16.09 cm2 RA Vol/ BSA A4C s A-L 16.7 mL/m2LA Area A2C s MOD 17.67 cm2 Ao Asc Diam d 2.95 cm M: 2.6 - 3.4LV EF A4C MOD 60.0 % LV EF Teichholz 56.4 %LV EF A2C MOD 59.5 % LVEF (Gandhi's)57.68 % M: 52 - 72LV EF Biplane MOD 57.7 % LV Wcytoi50.21 mL M: 62 - 197CZ09.47 mL LV Volume Index32.70 mL/m2 M: 34 - 74SV Index26.30 mL/m2 LV Vol Biplane MOD 104.8 mL FS29.45 % M-Mode TAPSE 2.33 cm (M/F) >1.7 LV Diastology MV E' medial0.070 (>0.07 m/s)E/A Ratio 1.0 LV E/e MED9.55 (<14)MV E Vmax 0.67 (0.4-1.3 m/s) MV E' lateral0.101 (>0.1 m/s)MV A Vmax 0.70 (0.4-1.3 m/s) LV E/e LAT6.55 (<14)MV E/A Ratio 0.90 MV E/E' medial 9.59 MV E/E' lateral6.59 Aortic Valve LVOT Area2.86 cm2AoV Area Vmax2.61 cm2 LVOT Vmax 1.39 m/sAoV Area/ BSA (Vmax)1.14 cm2/m2 LVOT Mean Michael.0.78 m/sAVA Mean Michael.2.05 cm2 LVOT Peak Grad 7.7 mmHgAVA Mean Michael. Index0.89 cm2/m2 LVOT Mean Grad 3.1 mmHg LVOT VTI0.269 m LVOT Diam s 1.90 cm AoV Vmax1.52 m/s Velocity Ratio 0.91 AoV Mean Michael.1.09 m/s AoV Peak Grad9.3 mmHg LVOT SV 77.07 mL AoV Mean Grad5.3 mmHg AoV VTI0.289 m AoV Area VTI2.67 cm2 AoV Area/ BSA (VTI)1.16 cm/m2 Mitral Valve MV DT 210 (160-240 msec) MV PHT61 msec MV Area PHT 3.61 cm2 MV VTI 0.279 m MV Area VTI 2.76 (4.0-6.0 cm2) Pulmonary Valve PV Vmax 1.19 (0.5-1.5 m/s)RVOT Peak Gr.1.75 mmHg PV Peak Grad 5.7 mmHgRVOT Mean Gr.0.90 mmHg PV Mean Grad 3.0 mmHgRVOT VTI0.132 m PV VTI 0.210 mRVOT Vmax 0.66 m/s Tricuspid Valve TR Peak Grad 19.3 mmHgTR Vmax 2.20 m/s RA Pressure 3.00 mmHg RVSP (TR) 22.4 mmHg Ordered By: Christophe Valdez NP CC: Dictated By: Marleni Tolbert M.D. 07/29/22 1648 <Electronically signed by Marleni Tolbert M.D. in [place]> 07/30/22805 Transcribed By: Marleni Tolbert MD This is privileged, confidential information intended only for the provider named. Any use or distribution by any person other than this provider is strictly prohibited. If you receive this report in error, please notify us immediately at [phone] and return the original report to us at the address above. Thank-you. Pulmonary Function Summary: Pulmonary Function Test PATIENT NAME: Luís Prater UNIT #: [id number] ADMITTING PROVIDER: Leticia Franks M.D. PRIMARY CARE PROVIDER: Christophe Robertson DNP DATE OF ADMIT: 06/24/22 : 1965 Date of service: 06/24/22 Time of Service: 10:08 Pulmonary Function Test Result Requesting Provider Christophe Moncada Indications: Asthma, dyspnea Interpretation Spirometry: There is no airflow limitation. There is a significant bronchodilator response. The FVC is low. Lung Volumes: Normal lung volumes. Diffusion Capacity: Normal diffusion. Airway Pressure: Normal airways resistance Impression No airflow obstruction with a bronchodilator response. Normal pulmonary function - the low FVC is pseudo restriction from an elevated BMI. Clinical Correlation therefore is recommended. cc: Dictated by: LETICIA FRANKS MD Dictated: 06/25/22 Time: 823 <Electronically signed by Leticia Franks M.D.> Date: 06/25/22826 Date: Date: Transcribed Date: 06/25/22 Transcribed Time: 823 By: JOSE M Anesthesia Assessment and Plan Anesthesia History Personal History: No History of Anesthesia Complications Family History: No Family History of Anesthesia Complications Exercise Tolerance Exercise Tolerance: Metabolic Equivalents>4 Pertinent Negatives Pertinent Negatives: No Symptoms of GERD, No Major Cardiovascular Symptoms or Complaints and No History of CVA/TIA Cardiac & Pulmonary Exam Cardiac Exam: Normal S1/S2 Heart Sounds Pulmonary Exam: Clear Bilateral Breath Sounds Implantable Cardiac Device Does patient have a Pacemaker or an ICD?: No Airway Exam Known Difficult Airway: No Mallampati Class: 4 Mouth Opening: Normal (> 3cm) Thyromental Distance: Greater than 3 cm Neck Range of Motion: Full ROM Neck Circumference: Normal Teeth Condition: Normal Dentition and Loose or Chipped (Multiple upper right) ASA Classification ASA Score: ASA 3 Emergency Case?: No NPO Status NPO Status: NPO Clears >2 hours, Solids >8 hours Anesthesia Plan Resuscitation Status: Full Code Anesthesia Technique: General Anesthesia Airway Planned: Endotracheal Tube Monitors Used: Standard Monitors Preoperative Comments:: Recent mold exposure that necessitated antibiotics from PCP due to airway. Patient took both inhalers today. Airway exam worsened since last visit, MP2 to MP4
[2023-10-12] MEDS: Lactated Ringers 1,000 ML 80 ML IV (06:56)
[2023-10-12] MEDS: Acetaminophen 500 MG TAB 1000 MG PO (06:58)
[2023-10-12] MEDS: Gabapentin 300 MG CAP 600 MG PO (06:58)
[2023-10-12] MEDS: Celecoxib 200 MG CAP PO (06:59)
--- NOTE | 2023-10-12 07:33 | W.PM.DSUDISC ---
Date of service: 10/12/23 Time of Service: 09:03 Discharge Plan Disposition Patient Disposition: Home Condition: Good Discharge Details Reason For Visit: Laparoscopic umbilical hernia repair Attending Provider: Steve Ordonez Primary Care Provider: Christophe Valdez Home Meds and New Rx's Prescriptions: New tramadol 50 mg tablet 50 mg PO Q8H PRNQty: 9 0RF Rx Instructions: Take 1 tablet by mouth up to every 8 hours if needed for more severe pain. Continued sildenafil 100 mg tablet 100 mg PO DAILY PRN (Reason: sexual activity) Qty: 30 0RF Rx Instructions: Take 0.25-1 tab, administer 30 minutes to 4 hours before activity dorzolamide-timolol (PF) 2-0.5 % drops 1 drp ophthalmic (eye) BID albuterol sulfate 2.5 mg /3 mL (0.083 %) solution for nebulization 2.5 mg inhalation Q4H PRN (Reason: shortness of breath or wheezing) Qty: 180 0RF lansoprazole [Prevacid] 30 MG capsule,delayed release(DR/EC) 30 mg PO DAILY latanoprost [Xalatan] 2.5 ML drops 1 drp OU DAILY fluticasone propion-salmeterol [Advair HFA] 230-21 mcg/actuation HFA aerosol inhaler 2 puff inhalation BID Qty: 12 12RF albuterol sulfate 90 mcg/actuation HFA aerosol inhaler 2 puff IH QID PRN (Reason: shortness of breath or wheezing) Qty: 18 6RF Discharge Instructions Instructions: Umbilical Hernia Repair (DC) Additional Instructions: Luís, we were able to repair your hernia today just as we discussed in the office. Everything went very smoothly, and this should provide complete resolution of the hernia. As we talked about before, the mesh is secured in place with some absorbable tacks. These can cause some pain at the insertion sites, but hopefully will be pretty comfortable after surgery. Please be careful until I see you in the office with lifting. Try to keep it less than 10 pounds. You should be up and walking around quite a bit. So long as you are comfortable on a tractor, I do not have any problem with you riding that, or any other equipment. I look forward to seeing you in the office, but if you need anything at all in the meantime, please do not hesitate to call at any point. My cell phone number is [phone]. 1. Resume all of your regular medications. 2. Alternate heating pads and ice packs over the incisions if needed for pain 3. Alternate [id number] Tylenol and ibuprofen every 6 hours for the first 2 days, then use as needed. Use the prescription for tramadol if needed for more severe pain. 4. Leave bandage in place for 24 hours, then remove. 5. Shower with warm soapy water. Pat dry. Use a bandaid if needed to protect your clothing. 6. No soaking or tub baths until I see you in the office. 7. No heavy lifting until I see you in the office. 8.Call the office (or go directly to the emergency room after hours) if you notice any of the following: Develop chills (warm to touch), or if you have a thermometer and your temperature is above 101 Difficulty breathing or difficultly swallowing Persistent vomiting Any bleeding ? exceeding one tablespoon 9. Call your physician if the site where your intravenous was started becomes red, swollen, painful, and warm to touch. Activity:: No heavy lifting Remove Dressings/Wound Care:: 24 hours Shower/Bathe:: 24 hours Diet:: As Tolerated Discharge Orders Discharge Orders: Discharge Order (Routine); Ordered 10/11/23 Ordered By: Steve Ordonez DS: Diagnosis Discharge Diagnosis (1) Umbilical hernia: Status: Acute Asessment and Plan: Routine postoperative follow-up
[2023-10-12] MEDS: ceFAZolin 3,000 MG in Normal Saline 100 ML 200 MG IVPB (07:54)
[2023-10-12] MEDS: Lidocaine 1% Pres-Free 30 ML VIAL (08:58)
[2023-10-12] MEDS: traMADol 50 MG TAB 100 MG PO (10:38)
--- NOTE | 2023-10-12 11:07 | W.ANESPOSTOP ---
Postoperative Evaluation Date, Time and Location Date Performed: 10/12/23 Time Performed: 10:28 Patient Location: Day Surgery Unit Vital Signs Most Recent Imported Vital Signs: Most Recent Vital Signs Temp Pulse Resp BP Pulse Ox 36.5 C 66 16 129/92 H 95 10/12/23 10:15 10/12/23 10:15 10/12/23 10:15 10/12/23 10:15 10/12/23 10:15 Pain Score Most Recent Pain Score: Most Recent Pain Score Pain Level 3 10/12/23 10:15 Assessment Mental Status: Awake (Alert & Oriented to Patient Baseline) Airway and Respiratory Function: Patent airway with normal (patient baseline) respiratory exam Cardiovascular Function: Hemodynamically Stable Hydration Status: Adequately Hydrated Nausea & Vomiting: No Nausea or Vomiting Pain: Pain is tolerable per patient Peripheral Nerve Block: Patient did not receive a nerve block
== END 2023-10-12 12:30 | disposition home or self-care (01) ==
PROVIDERS: PCP Nurse Practitioner Family; Visit Provider Surgery
PROC: (CPT 49650; principal; 2023-10-12 07:30)
DX: K42.9 Umbilical hernia without obstruction or gangrene (principal); J45.909 Unspecified asthma, uncomplicated
CPT/HCPCS: 49591; C1781; J0690; J1100; J2001; J2250; J2405; J2704

== ENCOUNTER 2024-07-06 00:40 | Outpatient (CLI) | payer BC, SELFPAY ==
[2024-07-06 09:10] LABS: HCT 47.5 % (40.0-50.0); HGB 14.8 g/dL (13.5-17.5); MCHC 31.2 % (32.0-36.0); MCV 80 fL (80-95); MPV 10.3 fL (8.0-11.0); Platelet Count 257 10^3/uL (130-400); RBC 5.92 10^6/uL (4.36-5.78); RDW 16.4 % (11.8-14.1); WBC 6.08 10^3/uL (4.4-10.8)
[2024-07-06 09:41] LABS: ALT 45 U/L (16-63); AST 22 U/L (15-37); Albumin 3.6 g/dL (3.4-5.0); Alkaline Phosphatase 93 U/L (46-116); Anion Gap 6.9 mmol/L (3-11); BUN 13 mg/dL (7-18); Bilirubin, Total 0.68 mg/dL (0.2-1.0); CO2 29.1 mmol/L (21.0-32.0); CREATININE 1.1 mg/dL (0.70-1.30); Calcium 9.1 mg/dL (8.5-10.1); Calculated LDL 115 mg/dL (<100); Chloride 106 mmol/L (98-107); Cholesterol 178 mg/dL (<200); Glucose 106 mg/dL (74-106); HDL Cholesterol 50 mg/dL (40-60); Potassium 4.3 mmol/L (3.5-5.1); Sodium 142 mmol/L (136-145); Total Protein 7.1 g/dL (6.4-8.2); Triglyceride 66 mg/dL (<150)
[2024-07-06 19:29] LABS: PSA, Screening 2.5 ng/mL (<=3.5)
== END 2024-07-06 00:41 | disposition home or self-care (01) ==
LOC: LBO 00:40
PROVIDERS: PCP Nurse Practitioner Family; Visit Provider Nurse Practitioner Family
DX: Z13.220 Encounter for screening for lipoid disorders (principal); K21.9 Gastro-esophageal reflux disease without esophagitis; Z12.5 Encounter for screening for malignant neoplasm of prostate
CPT/HCPCS: 36415; 80053; 80061; 84153; 85027